=== PATIENT | male | born 1975 | race Two or more races ===

== ENCOUNTER 2016-10-16 09:52 | Inpatient (IN) | payer MEDICARE ==
[2016-10-16] MEDS ORDERED: PANTOPRAZOLE SODIUM 40 MG in SODIUM CHLORIDE 100 ML IVPB ONE (10:19)
[2016-10-16] MEDS ORDERED: ONDANSETRON 4 MG/2 ML VIAL IVPUSH ONE (10:19)
[2016-10-16] MEDS ORDERED: SODIUM CHLORIDE 1,000 ML IV STA ×2 (10:19→13:49)
[2016-10-16] MEDS ORDERED: PANTOPRAZOLE SODIUM 100 ML IVPB ONE (10:25)
[2016-10-16] MEDS ORDERED: ONDANSETRON 4 MG/2 ML VIAL ONE (10:26)
[2016-10-16 10:35] LABS: BASOPHIL 0.5 % (0-2.0); EOSINOPHIL 0.6 % (0-4.5); MCH 32.6 pg (25.7-33.7); MCHC 34.3 g/dl (32.0-35.9); MEAN CELL VOLUME 94.9 fl (80-96); MEAN PLT VOLUME 8.3 fl (7.5-11.1); NEUTROPHILS 44.4 % (42.8-82.8); PLATELET COUNT 149 K/MM3 (134-434); RDW 13.9 % (11.9-15.9)
--- NOTE | 2016-10-16 10:46 | PDOC ---
History of Present Illness - General Chief Complaint: Pain, Acute Stated Complaint: CHEST PAIN Time Seen by Provider: 10/16/16 10:03 History Source: Patient Exam Limitations: No Limitations - History of Present Illness Travel History: No Initial Comments: 10/16/16 10:11 41-year-old male presenting to ED with complaints of worsening epigastric pain he describes as sharp and intermittent associated with nausea vomiting and diarrhea for the past 2 days. Patient states symptoms have worsened in severity and states has had similar symptoms in the past 2 to pancreatitis. Patient states drinks alcohol daily which consists of tequila and beer. Patient states last drink was 11 PM last night. Patient states has history of withdrawals but denies seizure activity. Patient denies any present drug use, change in appetite , recent travel, recent illness. Patient denies chest pain, shortness of breath , palpitations, or cough. Patient denies other medical history and takes no medications on a daily basis. Timing/Duration: reports: getting worse Quality: reports: moderate, burning, cramping, sharpness Abdominal Pain Onset Location: reports: epigastric Pain Radiation: reports: no radiation Activities at Onset: reports: none Aggravating Factors: improves with: None Alleviating Factors: improves with: Vomiting Past History - Travel Traveled outside of the country in the last 30 days: No Close contact w/someone who was outside of country & ill: No - Past Medical History Allergies/Adverse Reactions: Allergies Allergy/AdvReac Type Severity Reaction Status Date / Time No Known Allergies Allergy Verified 10/16/16 09:58 Home Medications: Ambulatory Orders NK [No Known Home Medication] 10/16/16 GI Disorders: Yes (pancreatitis) - Psycho/Social/Smoking Cessation Hx Suicidal Ideation: No Smoking History: Never smoked Hx Alcohol Use: Yes Drug/Substance Use Hx: Yes Substance Use Type: Alcohol Patient Lives Alone: No Abd/GI Specific PMHX - Complaint Specific PMHX Pancreatitis: Yes ( approx 5 years ago) Review of Systems - Review of Systems Able to Perform ROS?: No Constitutional: No: Symptoms Reported HEENTM: No: Symptoms Reported Respiratory: No: Symptoms reported Cardiac (ROS): No: Symptoms Reported ABD/GI: Yes: Diarrhea, Nausea, Poor Appetite, Poor Fluid Intake, Abdominal cramping : No: Symptoms Reported Musculoskeletal: No: Symptoms Reported Integumentary: No: Symptoms Reported Neurological: No: Symptoms reported Hematologic/Lymphatic: No: Symptoms Reported *Physical Exam - Vital Signs Last Vital Signs Temp Pulse Resp BP Pulse Ox 97.7 F 124 H 19 142/89 97 10/16/16 09:58 10/16/16 09:58 10/16/16 09:58 10/16/16 09:58 10/16/16 09:58 - Physical Exam General Appearance: Yes: Nourished, Appropriately Dressed, Alcohol on Breath. No: Apparent Distress HEENT: positive: MC, Pharynx Normal Neck: positive: Supple Respiratory/Chest: positive: Lungs Clear, Normal Breath Sounds. negative: Respiratory Distress, Accessory Muscle Use Cardiovascular: positive: Tachycardia. negative: Regular Rhythm, Murmur Gastrointestinal/Abdominal: positive: Soft, Tenderness (epigastric and ruq tenderness. - murphys sign) Musculoskeletal: negative: CVA Tenderness Extremity: positive: Normal Capillary Refill. negative: Pedal Edema Integumentary: positive: Normal Color, Warm, Moist Neurologic: positive: Normal Mood/Affect, Motor Strength 06/26 ED Treatment Course - LABORATORY CBC & Chemistry Diagram: 10/16/16 10:20 10/16/16 10:20 - RADIOLOGY Radiology Studies Ordered: Category Date Time Status CHEST X-RAY PORTABLE* [RAD] Stat Radiology 10/16/16 10:16 Completed - Medications Given in the ED: ED Medications Discontinued Medications Generic Name Dose Route Start Last Admin Trade Name Freq PRN Reason Stop Dose Admin Ondansetron HCl 4 mg 10/16/16 10:19 10/16/16 10:36 Zofran Injection IVPUSH 10/16/16 10:20 4 mg ONCE ONE Administration Medical Decision Making - Medical Decision Making 10/16/16 10:34 Patient with history of alcohol abuse and pancreatitis numerous years ago. Patient presents with epigastric pain such as nausea vomiting diarrhea. Patient denies fever, chills chest pain or shortness of breath. Patient exam had epigastric tenderness and to the right upper quadrant negative Mancilla's. Patient concerning for pancreatitis/cholecystitis versus gastritis. Pt less likely ACS. Pt ordered for ekg, cardiac profile, cbc, comp, lipase, ua, protonix iv, zofran iv, and IVF. 10/16/16 12:54 Laboratory Tests 10/16/16 10/16/16 10/16/16 10:20 10:20 10:20 WBC 6.0 Hgb 15.8 Hct 45.9 Plt Count 149 Neutrophils % 44.4 Sodium 141 Potassium 3.2 L Chloride 101 Carbon Dioxide 23 Anion Gap 17 H BUN 8 Creatinine 0.9 Creat Clearance w eGFR > 60 Random Glucose 130 H Lactic Acid 5.1 H* Calcium 8.4 L Total Bilirubin 1.1 H AST 56 H Creatine Kinase 353 H Troponin I < 0.02 Total Protein 8.6 H Chest x-ray negative for acute findings. Patient with elevated lactic acid so ordered for second bag of IV fluids including second lactic acid and blood cultures. Patient also ordered for 1 mg of Ativan secondary to complaints of generalized anxiety and noted mild fine tremors while pulling up sheets. Patient also ordered for abdominal CT due to history of pancreatitis. 10/16/16 14:31 Laboratory Tests 10/16/16 14:00 Urine Ketones Trace H Ur Leukocyte Esterase Negative Hospitalist here for evaluation. Pt receiving 3rd of IVF. *DC/Admit/Observation/Transfer Diagnosis at time of Disposition: Epigastric pain, Elevated lactic acid level, Hypokalemia, Nausea vomiting and diarrhea Alcohol withdrawal Qualifiers: Complication of substance-induced condition: uncomplicated Qualified Code(s): F10.230 - Alcohol dependence with withdrawal, uncomplicated - Discharge Dispostion Admit: Yes
[2016-10-16 10:48] LABS: ALBUMIN 4.4 g/dl (3.4-5.0); ANION GAP 17 (8-16); CALCIUM 8.4 mg/dL (8.5-10.1); CO2 23 mmol/L (21-32); GLUCOSE,RANDOM 130 mg/dL (74-106); MAGNESIUM 2.3 mg/dL (1.8-2.4)
[2016-10-16 10:53] LABS: BILIRUBIN,TOTAL 1.1 mg/dL (0.2-1.0); CREATININE 0.9 mg/dL (0.7-1.3); SGOT/AST 56 U/L (15-37); SGPT/ALT 45 U/L (12-78); TOT PROT 8.6 g/dl (6.4-8.2)
[2016-10-16 10:56] LABS: ALK PHOS 102 U/L (45-117); CPK 353 IU/L (39-308); TROPONIN I < 0.02 ng/ml (0.00-0.05)
[2016-10-16] MEDS ORDERED: POTASSIUM CHLORIDE TABS 20 MEQ TABLET.ER (FP) PO ONE ×2 (11:03→11:12)
[2016-10-16] MEDS ORDERED: FOLIC ACID INJECTION - 1 MG, THIAMINE HCL 100 MG, MULTIVIT INJECTION ADULT 10 ML in SOD... IVPB ONE ×2 (11:03→16:00)
[2016-10-16] MEDS ORDERED: LORazepam 2 MG/ML SDV VIAL ONE (11:20)
--- NOTE | 2016-10-16 12:01 | EKG ---
Test Reason : Blood Pressure : / mmHG Vent. Rate : 110 BPM Atrial Rate : 110 BPM P-R Int : 164 ms QRS Dur : 090 ms QT Int : 338 ms P-R-T Axes : 045 070 045 degrees QTc Int : 457 ms SINUS TACHYCARDIA OTHERWISE NORMAL ECG NO PREVIOUS ECGS AVAILABLE Confirmed by MD NILSON, FARHAD ([id number]) on 10/16/2016 12:00:36 PM Referred By: Confirmed By:FARHAD DEVINE MD
[2016-10-16 14:07] LABS: URINE APPEARANCE CLEAR; URINE BILIRUBIN NEGATIVE (NEGATIVE); URINE BLOOD NEGATIVE (NEGATIVE); URINE COLOR LTYELLOW; URINE GLUCOSE (UA) NEGATIVE (NEGATIVE); URINE KETONE TRACE (NEGATIVE); URINE LEUK ESTERASE NEGATIVE (NEGATIVE); URINE NITRITE NEGATIVE (NEGATIVE); URINE PROTEIN NEGATIVE (NEGATIVE); URINE UROBILINOGEN NEGATIVE mg/dL (0.2-1.0)
--- NOTE | 2016-10-16 15:11 | HP ---
CHIEF COMPLAINT: vomiting, abdominal pain, tremors PCP: none HISTORY OF PRESENT ILLNESS: 41 yr old man with hx of ETOH abuse and pancreatitis presents with diffuse nonradiating 7/10 abdominal pain and nonbloody nonbilous vomiting since last night. he had episodes of vomiting in the ED a/w diarrhea. He has been drinking " 2 large budweisers and small tequila" daily for the past 2 weeks. 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 Vomiting started last night soon after he stopped drinking, with multiple episodes. currently. Pt admits that drinking is a problem and wants to quit, says he is interested in getting help to quit drinking. Denies "blackouts", hx of withdrawal seizures. ER course was notable for: (1) banana bag, IVF, repeat Lactic acid (2) potassium repletion PAST MEDICAL HISTORY: pancreatitis PAST SURGICAL HISTORY: denies Social History: Smoking:denies Alcohol: etoh abuse Drugs: denies Family History: brother with DM Allergies No Known Allergies Allergy (Verified 10/16/16 09:58) PHYSICAL EXAMINATION GENERAL: Awake, alert, and fully oriented, in no acute distress. HEAD: Normal with no signs of trauma. EYES: curtis, extraocular movements intact, sclera anicteric, right sclera injected medially, conjunctiva clear. No lid lag. EARS, NOSE, THROAT: oropharynx clear without exudates. dry mucous membranes. NECK: Normal range of motion, supple without lymphadenopathy, JVD, or masses. LUNGS: Breath sounds equal, clear to auscultation bilaterally. No wheezes, and no crackles. No accessory muscle use. HEART: Regular rhythm, tachycardia, normal S1 and S2 without murmur, rub or gallop. ABDOMEN: Soft, diffusely tender, not distended, normoactive bowel sounds, no guarding, no rebound, no masses. No hepatomegaly or splenomegaly. NEUROLOGICAL: Cranial nerves II-XII intact. Normal speech. facial symmetry, resting tremor b/l hands PSYCHIATRIC: Cooperative. Good eye contact. Appropriate mood and affect. SKIN: Warm, dry, normal turgor, no rashes or lesions noted, normal capillary refill. ASSESSMENT/PLAN: 41 yr old man with ETOH abuse, presents with diffuse abdominal pain/vomiting/ tremors post ETOH ingestion placed on observation for lactic acidosis, detox and high anion gap metabolic acidosis. EKG: tachycardia, normal sinus, QTc 457 #ETOH withdrawal; CIWA 10 - librium taper - IVF NS - anti-nausea, NPO - pt is interested in attending rehab, outpatient resources have been provided for follow-up including facilities that may provide [place]. #High anion gap metabolic acidosis (gap with albumin correction 16), likely combination of etoh and lactic acid - repeat labs to trend gap - trend lactic acid #diffuse abdominal pain - likely due to continuos vomiting/ETOH ingestion causing GI irrigation. lipase wnl, low suspicion for pancreatitis, given gallbladder finding on CT with complete HIDA scan to r/o biliary obstruction as cause of pain #Elevated liver enzymes likely due to ETOH ingestion, r/o biliary obstruction with HIDA #HypoK+ - repletion #diet: NPO for HIDA Visit type - Emergency Visit Emergency Visit: Yes ED Registration Date: 10/16/16 Care time: The patient presented to the Emergency Department on the above date and was hospitalized for further evaluation of their emergent condition. - New Patient This patient is new to me today: Yes Date on this admission: 10/16/16 - Critical Care Critical Care patient: No
[2016-10-16] MEDS ORDERED: chlordiazePOXIDE HCL 25 MG CAPSULE PO PRN (15:24)
--- NOTE | 2016-10-16 15:41 | HP ---
CHIEF COMPLAINT: vomiting since 5AM, chest pain PCP: HISTORY OF PRESENT ILLNESS: 41 y/o M with PMH inflamed liver, possible intestinal mass, who presented to ED today for vomiting and chest pain. As per pt, he has had multiple episodes of emesis since this morning that have been NBNB. During this time, pt has also had chest and abdominal pain, as well as tremors. His chest pain is related to palpitations, while his RUQ abdominal pain is worse with food intake. He has not tried any medications to help his pain. He states that he has had similar shakes in the past after he stops drinking, and has seen animals in the wall since this morning. His last drink was a beer that he had last night. Denies headache, fever, chills, withdrawal seizures. ER course was notable for: (1) Troponin negative x 1 (2) Abdomen/pelvis CT: no evidence pancreatitis or mass, distended fluid filled GB (3) Recent Travel: none PAST MEDICAL HISTORY: inflamed liver, intestinal mass (as per pt), alcoholic withdrawal episodes in past PAST SURGICAL HISTORY: none Social History: Smoking:denies Alcohol: drinks daily- 2-3 beers, 1 large tequila bottle. Interested in going to rehab Drugs: denies Family History: grandma, uncle, cousin: DM Allergies No Known Allergies Allergy (Verified 10/16/16 09:58) HOME MEDICATIONS: Home Medications Medication Instructions Recorded NK [No Known Home Medication] 10/16/16 REVIEW OF SYSTEMS CONSTITUTIONAL: Absent: fever, chills, diaphoresis, generalized weakness, malaise, loss of appetite, weight change HEENT: Absent: rhinorrhea, nasal congestion, throat pain, throat swelling, difficulty swallowing, mouth swelling, ear pain, eye pain, visual changes CARDIOVASCULAR: +chest pain Absent: chest pain, syncope, palpitations, irregular heart rate, lightheadedness , peripheral edema RESPIRATORY: Absent: cough, shortness of breath, dyspnea with exertion, orthopnea, wheezing, stridor, hemoptysis GASTROINTESTINAL:+nausea, vomiting, abdominal pain Absent: abdominal pain, abdominal distension, nausea, vomiting, diarrhea, constipation, melena, hematochezia GENITOURINARY: Absent: dysuria, frequency, urgency, hesitancy, hematuria, flank pain, genital pain MUSCULOSKELETAL: Absent: myalgia, arthralgia, joint swelling, back pain, neck pain SKIN: Absent: rash, itching, pallor HEMATOLOGIC/IMMUNOLOGIC: Absent: easy bleeding, easy bruising, lymphadenopathy, frequent infections ENDOCRINE: Absent: unexplained weight gain, unexplained weight loss, heat intolerance, cold intolerance NEUROLOGIC: Absent: headache, focal weakness or paresthesias, dizziness, unsteady gait, seizure, mental status changes, bladder or bowel incontinence PSYCHIATRIC: Absent: anxiety, depression, suicidal or homicidal ideation, hallucinations. PHYSICAL EXAMINATION Vital Signs - 24 hr 10/16/16 15:05 O2 Sat by Pulse 96 Oximetry (%) GENERAL: Awake, alert, and fully oriented, in no acute distress. HEAD: Normal with no signs of trauma. EYES: Pupils equal, round and reactive to light, extraocular movements intact, injected conjunctiva. EARS, NOSE, THROAT: Ears normal, nares patent, oropharynx clear without exudates. Moist mucous membranes. NECK: Normal range of motion, supple without lymphadenopathy, tender to palpation over SCM, JVD, or masses. LUNGS: Breath sounds equal, clear to auscultation bilaterally. No wheezes, and no crackles. No accessory muscle use. HEART: Tachycardic rate and rhythm, normal S1 and S2 without murmur, rub or gallop. ABDOMEN: nondistended, tender to palpation LLQ, RUQ, normoactive bowel sounds, no guarding, no rebound, no masses. MUSCULOSKELETAL: Normal range of motion at all joints. No bony deformities or tenderness. No CVA tenderness. tremors in upper extremities b/l LOWER EXTREMITIES: 2+ posterior tibial pulses, warm, well-perfused. No calf tenderness. No peripheral edema. NEUROLOGICAL: Cranial nerves II-XII intact. ASSESSMENT/PLAN: 41 y/o M with PMH inflamed liver, possible intestinal mass, who presented to ED today for vomiting and chest pain. Pt admitted med-surg for distended gall bladder and alcohol withdrawal. #Elevated lactate secondary to alcohol -Lactic acid 5.1 on admission, 2.5 on repeat -F/u repeat lactic acid -F/u BMP, CBC, anion gap #Distended Gall bladder r/o GB pathology -Abdomen/pelvis CT: distended fluid filled gall bladder evident, without stones -F/u HIDA scan #Alcohol withdrawal -Last drink last night, currently has tremors and visual hallucinations -Started on librium protocol -Pt received banana bag in ED -Started on thiamine, folate -Monitor for DTs -Current CIWA: 13 #Hypokalemia secondary to alcohol -Pt started on KCl 10mEq, three bags -F/u BMP #Prophylaxis -DVT: early ambulation #F/E/N IV NS 100cc/hr Monitor electrolytes NPO Disposition -med surg -agreed to go to [facility] for rehab after medical mgmt Visit type - Emergency Visit Emergency Visit: Yes ED Registration Date: 10/16/16 Care time: The patient presented to the Emergency Department on the above date and was hospitalized for further evaluation of their emergent condition. - New Patient This patient is new to me today: Yes Date on this admission: 10/16/16 - Critical Care Critical Care patient: No
--- NOTE | 2016-10-16 15:42 | PN ---
Teaching Attending Note Name of Resident: Christy Crespo ATTENDING PHYSICIAN STATEMENT I saw and evaluated the patient. I reviewed the resident's note and discussed the case with the resident. I agree with the resident's findings and plan as documented. SUBJECTIVE:41yo M c/o abdominal pain assoc with nausea and vomiting x1day. admits to multiple episodes of vomiting food products for the past day, anorexia and multiple loose BM since that time. pain is not assoc with eating but developed after he had multiple episodes of emesis. last drink was last night. admits to drinking 1/5 of tequilla and several beers daily. denies CP, SOB, fever, chills, visual/tactile hallucinations, withdrawal seizures. states he has a liver problem but can not give more detail. OBJECTIVE: Last Vital Signs Temp Pulse Resp BP Pulse Ox 97.7 F 107 H 20 134/79 96 10/16/16 09:58 10/16/16 13:53 10/16/16 13:53 10/16/16 13:53 10/16/16 15:05 General mildly anxious CV S1 S2 tachy Lungs CTA B/L no wheezing/rales/rhonchi Abdomen diffusely tender no rebound or guarding, negative leon sign normoacitve BS Extremities +tremor at rest ASSESSMENT AND PLAN: 41yo M with PMH pancreatitis and continuous ETOH dependence presented to the ER with abdominal pain 1. AG metabolic acidosis- due to lactic acidosis likely due to ETOH. lactic acidosis improving with IVF. will cont to hydrate. repeat lactic acidosis and chemistries. 2. Distended GB- does not appear to have biliary colic, mild transaminits. check HIDA scan 3. Acute ETOH withdrawals- CIWA 10. start librium protocol. banana bag, thiamine /folate/MVI considering inpatient rehab. monitor for signs of worsening withdrawal. family court counsellor on importance of ETOH cessation and assoc health risks. 4. Hypokalemia- KCL 10meq x3 5. hx of pancreatitis- likely due to alcoholism. likely not having acute pancreatitis at this time. CT scan and lipase are WNL. pt story does not support this 6. DVT ppx- lovenox
[2016-10-16] MEDS ORDERED: ONDANSETRON 4 MG TABLET PO PRN (16:22)
[2016-10-16 16:56] LABS: ANION GAP 10 (8-16); CALCIUM 7.8 mg/dL (8.5-10.1); CO2 26 mmol/L (21-32); CREATININE 0.7 mg/dL (0.7-1.3); GLUCOSE,RANDOM 98 mg/dL (74-106)
[2016-10-16] MEDS: SODIUM CHLORIDE 1,000 ML IV SCH (18:09)
[2016-10-16] MEDS: chlordiazePOXIDE HCL 25 MG CAPSULE PO SCH ×2 (18:10→22:02)
[2016-10-16] MEDS: KCL 10 MEQ IVPB 100 ML IVPB SCH ×3 (18:11→21:53)
[2016-10-16 18:35] VITALS: BMI 27.6
[2016-10-17] MEDS: SODIUM CHLORIDE 1,000 ML IV SCH (05:40)
[2016-10-17] MEDS: chlordiazePOXIDE HCL 25 MG CAPSULE PO SCH ×2 (06:09→10:27)
[2016-10-17 07:07] LABS: MCH 32.7 pg (25.7-33.7); MCHC 34.3 g/dl (32.0-35.9); MEAN CELL VOLUME 95.3 fl (80-96); MEAN PLT VOLUME 8.5 fl (7.5-11.1); PLATELET COUNT 101 K/MM3 (134-434); RDW 13.8 % (11.9-15.9)
[2016-10-17 07:15] LABS: ANION GAP 7 (8-16); CALCIUM 8.2 mg/dL (8.5-10.1); CO2 30 mmol/L (21-32); CREATININE 0.8 mg/dL (0.7-1.3); GLUCOSE,RANDOM 96 mg/dL (74-106)
[2016-10-17 08:51] LABS: ALBUMIN 3.4 g/dl (3.4-5.0); BILIRUBIN,DIRECT 0.4 mg/dL (0.0-0.2); BILIRUBIN,TOTAL 1.6 mg/dL (0.2-1.0); LDL CHOLESTEROL (ONLY SJRH) 68 mg/dL (5-100); SGOT/AST 41 U/L (15-37); SGPT/ALT 38 U/L (12-78)
[2016-10-17 08:57] LABS: ALK PHOS 81 U/L (45-117); CHOLESTEROL 145 mg/dL (50-200)
--- NOTE | 2016-10-17 09:32 | PN ---
Progress Note (short form) - Note Progress Note: abdominal pain resolved. no more nausea and vomiting. tolerating diet. denies CP, SOB, fever, chills, N/V/C/D Current Medications Generic Name Dose Route Start Last Admin Trade Name Freq PRN Reason Stop Dose Admin Chlordiazepoxide HCl 25 mg 10/16/16 15:24 Librium - PO 10/19/16 15:23 Q4H PRN WITHDRAWAL(CONT SUBST) Chlordiazepoxide HCl 50 mg 10/16/16 17:00 10/17/16 06:09 Librium - PO 10/17/16 11:01 50 mg [id number] NATE Administration Chlordiazepoxide HCl 25 mg 10/17/16 17:00 Librium - PO 10/18/16 11:01 [id number] NATE Chlordiazepoxide HCl 15 mg 10/18/16 17:00 Librium - PO 10/19/16 11:01 [id number] NATE Folic Acid 1 mg 10/17/16 10:00 Folic Acid - PO DAILY NATE Sodium Chloride 1,000 mls @ 150 mls/hr 10/16/16 15:15 10/17/16 05:40 Normal Saline - IV 150 mls/hr ASDIR NATE Administration Ondansetron HCl 4 mg 10/16/16 16:22 Zofran - PO Q4H PRN NAUSEA AND/OR VOMITING Thiamine HCl 100 mg 10/17/16 22:00 Vitamin B1 - PO HS NATE Last Vital Signs Temp Pulse Resp BP Pulse Ox 97.7 F 73 18 118/74 96 10/17/16 06:00 10/17/16 06:00 10/17/16 06:00 10/17/16 06:00 10/16/16 21:00 General NAD CV S1 S2 RRR no murmur/rub/gallop Lungs CTA B/L no wheezing/rales/rhonchi Abdomen soft NT/ND, negative leon sign normoacitve BS Extremities no tremor CBCD WBC 4.0 K/mm3 (4.0-10.0) D 10/17/16 06:00 RBC 4.27 M/mm3 (4.00-5.60) 10/17/16 06:00 Hgb 14.0 GM/dL (11.7-16.9) D 10/17/16 06:00 Hct 40.7 % (35.4-49) 10/17/16 06:00 MCV 95.3 fl (80-96) 10/17/16 06:00 MCHC 34.3 g/dl (32.0-35.9) 10/17/16 06:00 RDW 13.8 % (11.9-15.9) 10/17/16 06:00 Plt Count 101 K/MM3 (134-434) L D 10/17/16 06:00 MPV 8.5 fl (7.5-11.1) 10/17/16 06:00 CMP Sodium 139 mmol/L (136-145) 10/17/16 06:00 Potassium 3.8 mmol/L (3.5-5.1) 10/17/16 06:00 Chloride 102 mmol/L (98-107) 10/17/16 06:00 Carbon Dioxide 30 mmol/L (21-32) 10/17/16 06:00 Anion Gap 7 (8-16) L 10/17/16 06:00 BUN 7 mg/dL (7-18) 10/17/16 06:00 Creatinine 0.8 mg/dL (0.7-1.3) 10/17/16 06:00 Creat Clearance w eGFR > 60 (>60) 10/16/16 10:20 Calcium 8.2 mg/dL (8.5-10.1) L 10/17/16 06:00 Total Bilirubin 1.6 mg/dL (0.2-1.0) H D 10/17/16 06:00 AST 41 U/L (15-37) H D 10/17/16 06:00 ALT 38 U/L (12-78) 10/17/16 06:00 Alkaline Phosphatase 81 U/L (45-117) D 10/17/16 06:00 Total Protein 7.0 g/dl (6.4-8.2) 10/17/16 06:00 Albumin 3.4 g/dl (3.4-5.0) D 10/17/16 06:00 ASSESSMENT AND PLAN: 41yo M with PMH pancreatitis and continuous ETOH dependence presented to the ER with abdominal pain 1. AG metabolic acidosis- due to lactic acidosis likely due to ETOH. resolved. 2. Distended GB- does not appear to have biliary colic, mild transaminits. HIDA scan negative. no indication for further workup 3. Acute ETOH withdrawals- CIWA 0 on librium protocol. pt has no insurance and can not be accepted to [facility]. Cont thiamine/folate/MVI monitor for signs of worsening withdrawal. eap counselor on importance of ETOH cessation and assoc health risks. 4. Hypokalemia- resolved 5. hx of pancreatitis- likely due to alcoholism. likely not having acute pancreatitis at this time. CT scan and lipase are WNL. pt story does not support this 6. DVT ppx- lovenox 7. will complete detox inhouse. unable to go to [facility] due to lack of insurance. Visit type - Emergency Visit Emergency Visit: Yes ED Registration Date: 10/16/16 Care time: The patient presented to the Emergency Department on the above date and was hospitalized for further evaluation of their emergent condition. - New Patient This patient is new to me today: No - Critical Care Critical Care patient: No - Discharge Referral Referred to [facility] Med P.C[facility] No
[2016-10-17] MEDS ORDERED: FOLIC ACID 1 MG TABLET (FP) PO SCH (10:00)
[2016-10-17 15:16] VITALS: BP 118/71; PULSE 78; TEMP 97.3
[2016-10-17] MEDS ORDERED: chlordiazePOXIDE HCL 25 MG CAPSULE PO SCH (17:00)
--- NOTE | 2016-10-17 18:08 | DS ---
Physical Exam: SUBJECTIVE: Patient seen and examined at bedside. No new complaints. Continues to have shakes. OBJECTIVE: Vital Signs Period Temp Pulse Resp BP Sys/[place]dez Pulse Ox Last 24 Hr 97.3 F-98.8 F 73-92 18-18 118-125/68-90 96-98 PHYSICAL EXAM GENERAL: The patient is awake, alert, and fully oriented, in no acute distress. HEAD: Normal with no signs of trauma. EYES: PERRL, extraocular movements intact, sclera anicteric, conjunctiva clear. ENT: Ears normal, nares patent, oropharynx clear without exudates, moist mucous membranes. NECK: Trachea midline, full range of motion, supple. LUNGS: Breath sounds equal, clear to auscultation bilaterally, no wheezes, no crackles, no accessory muscle use. HEART: Regular rate and rhythm, S1, S2 without murmur, rub or gallop. ABDOMEN: Soft, nontender, nondistended, normoactive bowel sounds, no guarding, no rebound, no hepatosplenomegaly, no masses. EXTREMITIES: 2+ pulses, warm, well-perfused, no edema. NEUROLOGICAL: Cranial nerves II through XII grossly intact. Normal speech, gait not observed. PSYCH: Normal mood, normal affect. SKIN: Warm, dry, normal turgor, no rashes or lesions noted. LABS Laboratory Results - last 24 hr 10/17/16 10/17/16 06:00 06:00 WBC 4.0 D RBC 4.27 Hgb 14.0 D Hct 40.7 MCV 95.3 MCH 32.7 MCHC 34.3 RDW 13.8 Plt Count 101 L D MPV 8.5 Sodium 139 Potassium 3.8 Chloride 102 Carbon Dioxide 30 Anion Gap 7 L BUN 7 Creatinine 0.8 Random Glucose 96 Calcium 8.2 L Total Bilirubin 1.6 H D Direct Bilirubin 0.4 H AST 41 H D ALT 38 Alkaline Phosphatase 81 D Total Protein 7.0 Albumin 3.4 D Triglycerides 122 Cholesterol 145 Total LDL Cholesterol 68 HDL Cholesterol 67 H HOSPITAL COURSE: 41yo M with PMH pancreatitis and continuous ETOH dependence presented to the ER with abdominal pain.Found to have AG metabolic acidosis likely due to lactic acidosis 2/2 ETOH which resolved with IVF.. Distended GB did not appear to have biliary colic, mild transaminits. HIDA scan was negative and there was no indication for further workup.Acute ETOH withdrawals- CIWA 0 on librium protocol.Given thiamine/folate/MVI and monitored for signs of worsening withdrawal. social services counselor on importance of ETOH cessation and assoc health risks. Patient states that he would like to leave AMA as he might lose his job if he misses any more days of work. He has signed the AMA documentation . PATIENT ADAMANTLY REFUSES HOSPITALIZATION AND WANTS TO LEAVE AGAINST MEDICAL ADVICE. I EXPLAINED TO PATIENT THAT AGAINST MEDICAL ADVICE IS DANGEROUS AND CAN LEAD TO WORSENING OF CONDITION, PERMANENT DISABILITY, AND EVEN . I USED LAY TERMINOLOGY. I ANSWERED ALL QUESTIONS. ITS CLEAR TO ME THAT HE UNDERSTANDS THE RISKS AND BENEFITS OF CONTINUOUS HOSPITAL STAY AND LEAVING AGAINST MEDICAL ADVISE. HE HAS THE CAPACITY TO MAKE HIS/HER OWN DECISIONS. HE AGREES TO FOLLOW UP WITH HIS PRIMARY MEDICAL DOCTOR TOMORROW AND RETURN TO THE EMERGENCY DEPARTMENT IF SYMPTOMS WORSEN. Date of Discharge: 10/17/16 Minutes to complete discharge: 30 Discharge Summary Reason For Visit: ALCOHOL WITHDRAWAL SYNDROME, EPIGASTRIC PAIN Current Active Problems Alcohol withdrawal (Acute) Elevated lactic acid level (Acute) Epigastric pain (Acute) Hypokalemia (Acute) Nausea vomiting and diarrhea (Acute) Condition: Poor - Instructions Diet, Activity, Other Instructions: PATIENT ADAMANTLY REFUSES HOSPITALIZATION AND WANTS TO LEAVE AGAINST MEDICAL ADVICE. I EXPLAINED TO PATIENT THAT AGAINST MEDICAL ADVICE IS DANGEROUS AND CAN LEAD TO WORSENING OF CONDITION, PERMANENT DISABILITY, AND EVEN . I USED LAY TERMINOLOGY. I ANSWERED ALL QUESTIONS. ITS CLEAR TO ME THAT HE UNDERSTANDS THE RISKS AND BENEFITS OF CONTINUOUS HOSPITAL STAY AND LEAVING AGAINST MEDICAL ADVISE. HE HAS THE CAPACITY TO MAKE HIS/HER OWN DECISIONS. HE AGREES TO FOLLOW UP WITH HIS PRIMARY MEDICAL DOCTOR TOMORROW AND RETURN TO THE EMERGENCY DEPARTMENT IF SYMPTOMS WORSEN. Disposition: AGAINST MEDICAL ADVICE - Home Medications Comprehensive Discharge Medication List: Ambulatory Orders NK [No Known Home Medication] 10/16/16 This patient is new to me today: Yes Date on this admission: 10/17/16 Emergency Visit: Yes ED Registration Date: 10/16/16 Care time: The patient presented to the Emergency Department on the above date and was hospitalized for further evaluation of their emergent condition. Critical Care patient: No - Discharge Referral Referred to [facility] Med P.C.: No
[2016-10-17] MEDS ORDERED: THIAMINE HCL 100 MG TABLET (FP) PO SCH (22:00)
[2016-10-18] MEDS ORDERED: chlordiazePOXIDE 5 MG CAPSULE PO SCH (17:00)
== END 2016-10-17 18:16 | disposition left against medical advice (07) | DRG 770 ==
LOC: JER 09:52 → JERBED 14:28 → J5S 15:45
PROVIDERS: ADMIT Internal Medicine; ATTEND Internal Medicine
PROC: HZ2ZZZZ Detoxification Services for Substance Abuse Treatment (ICD-10-PCS; principal; 2016-10-16)
DX: F10.230 Alcohol dependence with withdrawal, uncomplicated (principal); E87.6 Hypokalemia; E87.2 Acidosis; R11.2 Nausea with vomiting, unspecified; R19.7 Diarrhea, unspecified; R10.13 Epigastric pain; K82.8 Other specified diseases of gallbladder
CPT/HCPCS: 36415; 71010-TC; 74176-TC; 78226-TC; 80048; 80053; 80061; 80076; 81003; 82553; 83605; 83690; 83721; 83735; 84484; 85025; 85027; 87040; 87086; 93005; 93010; 99285-25; A9537